=== PATIENT | female | born 1980 | race Caucasian/White ===

== ENCOUNTER 2020-02-26 14:10 | Outpatient (CLI) | payer OTHER ==
--- NOTE | 2020-02-26 15:32 | RAD ---
LUMBAR SPINE 4 VIEWS:: Date: 02/26/2020 HISTORY: Lumbar pain. FINDINGS: The lumbar vertebra maintain normal height and alignment in the lateral view. There is a slight poste rolisthesis at L4-5. Review of disc spaces show mild loss of disc space at L4-5 and L5-S1. Very mild degenerative spurring is seen. Posterolisthesis does not significantly change with flexion or extensi on. There is no evidence of spondylolysis. Mild facet hypertrophy is seen. IMPRESSION: Mild posterolisthesis at L4-5 with mild loss of disc space. Very mild degenerative change noted. POS: AH
== END 2020-02-26 14:11 | disposition home or self-care (01) ==
LOC: SCSRAD 14:10
PROVIDERS: ATTEND Family Medicine
DX: M54.5 Low back pain (principal); M43.16 Spondylolisthesis, lumbar region; M47.816 Spondylosis without myelopathy or radiculopathy, lumbar region
CPT/HCPCS: 72110

== ENCOUNTER 2020-03-17 19:00 | Outpatient (CLI) | payer OTHER | END 2020-03-17 19:01 | disposition home or self-care (01) | LOC: SLEEPLAB 19:00 | PROVIDERS: ATTEND Family Medicine | DX: G47.33 Obstructive sleep apnea (adult) (pediatric) (principal); R53.83 Other fatigue; R51.9 Headache, unspecified; K21.9 Gastro-esophageal reflux disease without esophagitis; F41.9 Anxiety disorder, unspecified; E66.9 Obesity, unspecified; G47.10 Hypersomnia, unspecified; G47.00 Insomnia, unspecified; I10 Essential (primary) hypertension; Z68.41 Body mass index [BMI] 40.0-44.9, adult | CPT/HCPCS: 95811 ==